=== PATIENT | female | born 1955 | race Caucasian/White ===

== ENCOUNTER 2023-04-10 16:36 | Inpatient (IN) | payer MEDICARE, OTHER ==
[~2023-04-10] VITALS: Ht 165.1 cm; Wt 102.3 kg
[2023-04-10] VITALS (8 sets, daily range): BP systolic 154–183; BP diastolic 55–80; PULSE 64–70; RESP 13–21; TEMP 96–97.7; O2SAT 94–100
[~2023-04-10 16:36] MED LIST: COREG12.5 MG PO; FUROSEMIDE20 MG PO; FUROSEMIDE40 MG PO; HUMULIN-R100 UNITS/ SQ; HYTRIN1 M1 PO; INVOCANA PO; JANUVIA25 MG PO; JANUVIA50 MG PO; LISINOPRIL10 MG PO; LOSARTAN POTASS50 MG PO; SIMVASTATIN20 MG PO; TERAZOSIN HCL5 MG PO; insulin n SQ
[2023-04-10] MEDS ORDERED: DEXTROSE 50% SYRINGE 50 ML IV ONE (16:52)
[2023-04-10] MEDS ORDERED: DEXTROSE 5%/0.45% SOD CHL 1,000 ML IV ONE (17:00)
[2023-04-10 18:00] LABS: BASOPHILS # (AUTO) 0.1 (0.0-0.1); BASOPHILS % 0.5 % (0.0-1.0); EOSINOPHILS % 0.2 % (0.0-6.0); HEMATOCRIT 34.8 % (34.2-44.1); HEMOGLOBIN 11.5 g/dL (12.0-16.0); LYMPHOCYTES % 8.4 % (18.0-39.1); MEAN CORPUSCULAR HEMOGLOBIN 30.9 pg (28-32); MEAN CORPUSCULAR VOLUME 93.5 fL (81-99); MONOCYTES # (AUTO) 0.6 (0.2-0.8); MONOCYTES % 5.1 % (4.4-11.3); NEUTROPHILS # (AUTO) 10.6 (2.1-6.9); NEUTROPHILS % 85.3 % (38.7-80.0); PLATELET COUNT 182 x10e3/uL (140-360); RED BLOOD COUNT 3.72 x10e6/uL (3.6-5.1); RED CELL DISTRIBUTION WIDTH 13.1 % (11.7-14.4)
[2023-04-10 18:06] LABS: CLARITY,URINE SL CLOUDY (CLEAR); COLOR,URINE YELLOW (YELLOW); KETONES,URINE NEGATIVE (NEGATIVE); LEUKOCYTE ESTERASE ,URINE SMALL (NEGATIVE); NITRITE,URINE NEGATIVE (NEGATIVE); PROTEIN,URINE DIPSTICK >=300 (NEGATIVE); URINE UROBILINOGEN 0.2 mg/dL (0.2 - 1)
[2023-04-10 18:13] LABS: BACTERIA,URINE MANY /HPF; EPITHELIAL CELLS,URINE FEW /LPF; WBC,URINE (MAN) 21-50 /HPF (0-5)
[2023-04-10 18:14] LABS: INR 0.98; PROTHROMBIN TIME 13.5 seconds (11.9-14.5)
[2023-04-10 18:15] LABS: PARTIAL THROMBOPLASTIN TIME 36.7 seconds (23.8-35.5)
[2023-04-10 18:20] LABS: ALANINE AMINOTRANSFERASE 22 IU/L (0-55); ALBUMIN 3.1 g/dL (3.5-5.0); ALBUMIN/GLOBULIN RATIO 0.6 (0.8-2.0); ALKALINE PHOSPHATASE 92 IU/L (40-150); ANION GAP 21.1 mmol/L (8-16); BLOOD UREA NITROGEN 60 mg/dL (7-26); BUN/CREATININE RATIO 6 (6-25); CALCIUM 9.4 mg/dL (8.4-10.2); CARBON DIOXIDE 25 mmol/L (22-29); CHLORIDE 98 mmol/L (98-107); CREATINE KINASE 257 IU/L (29-168); CREATININE, SERUM 10.15 mg/dL (0.57-1.11); MAGNESIUM 2.5 MG/DL (1.3-2.1); POTASSIUM 4.1 mmol/L (3.5-5.1); SODIUM 140 mmol/L (136-145)
[2023-04-10 18:26] LABS: GLUCOSE 45 mg/dL (74-118)
[2023-04-10] MEDS ORDERED: IOPAMIDOL 370 MG/ML 100 ML INFUS..BTL INJ ONE (18:34)
[2023-04-10] MEDS ORDERED: SODIUM CHLORIDE 0.9% 0 ML ONE (18:34)
[2023-04-10] MEDS ORDERED: DEXTROSE 50% SYRINGE 50 ML IV STA (18:41)
[2023-04-10] MEDS ORDERED: SODIUM CHLORIDE FLUSH 10 ML SYR INJ PRN (19:00)
[2023-04-10] MEDS ORDERED: DEXTROSE 50% SYRINGE 50 ML IV PRN ×2 (19:00→23:45)
[2023-04-10] MEDS ORDERED: ONDANSETRON HCL INJ 2MG/ML 2ML 2 MG/ML VIAL IV PRN (19:00)
[2023-04-10] MEDS ORDERED: LOSARTAN POTAS100 MG PO (22:32)
[2023-04-10] MEDS ORDERED: HUMULIN N100 UNITS/ SC (22:32)
[2023-04-10] MEDS ORDERED: AMLODIPINE BESY10 MG PO (22:32)
[2023-04-11] VITALS (17 sets, daily range): BP systolic 148–186; BP diastolic 62–82; PULSE 60–67; RESP 14–26; TEMP 97.7–98.7; O2SAT 88–97
[2023-04-11] MEDS: LOSARTAN POTASSIUM 100 MG TAB PO SCH ×2 (01:32→07:51)
[2023-04-11] MEDS: CARVEDILOL 12.5 MG TAB PO SCH ×3 (01:33→17:22)
[2023-04-11] MEDS: INSULIN REGULAR, HUMAN 100 UNIT/1 ML SQ SCH ×4 (07:30→20:10)
[2023-04-11 08:48] LABS: BASOPHILS # (AUTO) 0.1 (0.0-0.1); BASOPHILS % 0.5 % (0.0-1.0); EOSINOPHILS # (AUTO) 0.2 (0.0-0.4); EOSINOPHILS % 1.4 % (0.0-6.0); HEMATOCRIT 29.2 % (34.2-44.1); HEMOGLOBIN 9.5 g/dL (12.0-16.0); LYMPHOCYTES # (AUTO) 1.3 (1.0-3.2); LYMPHOCYTES % 11.1 % (18.0-39.1); MEAN CORPUSCULAR HEMOGLOBIN 30.6 pg (28-32); MEAN CORPUSCULAR HGB CONC 32.5 g/dL (31-35); MEAN CORPUSCULAR VOLUME 94.2 fL (81-99); MONOCYTES # (AUTO) 0.7 (0.2-0.8); MONOCYTES % 6.3 % (4.4-11.3); NEUTROPHILS # (AUTO) 9.1 (2.1-6.9); NEUTROPHILS % 80.4 % (38.7-80.0); PLATELET COUNT 187 x10e3/uL (140-360); RED CELL DISTRIBUTION WIDTH 13.7 % (11.7-14.4)
[2023-04-11] MEDS ORDERED: AMLODIPINE BESYLATE 10 MG TAB PO SCH (09:00)
[2023-04-11 09:05] LABS: ANION GAP 20.3 mmol/L (8-16); CALCIUM 8.3 mg/dL (8.4-10.2); CREATININE, SERUM 10.31 mg/dL (0.57-1.11); POTASSIUM 4.3 mmol/L (3.5-5.1)
[2023-04-11] MEDS ORDERED: POLYETHYLENE GLYCOL 3350 17 GM PACK PO PRN (14:45)
[2023-04-11] MEDS ORDERED: HYDRALAZINE HCL 20 MG/ML VIAL IV PRN (14:45)
[2023-04-11] MEDS ORDERED: ACETAMINOPHEN 325 MG TAB PO PRN (14:45)
[2023-04-11] MEDS: AMLODIPINE BESYLATE 10 MG TAB PO SCH (17:21)
[2023-04-11] MEDS: MUPIROCIN 2% OINT 22 GM TUBE TOP SCH (17:22)
[2023-04-11] MEDS: DOCUSATE SODIUM 100 MG CAP PO SCH (17:22)
[2023-04-11] MEDS ORDERED: SIMVASTATIN 20 MG TAB PO SCH (21:00)
[2023-04-12] VITALS (12 sets, daily range): BP systolic 126–172; BP diastolic 59–102; PULSE 58–73; RESP 16–24; TEMP 97.7–98; O2SAT 87–97
[2023-04-12 07:47] LABS: BASOPHILS # (AUTO) 0.1 (0.0-0.1); BASOPHILS % 0.5 % (0.0-1.0); EOSINOPHILS # (AUTO) 0.2 (0.0-0.4); HEMOGLOBIN 9.9 g/dL (12.0-16.0); LYMPHOCYTES # (AUTO) 1.6 (1.0-3.2); LYMPHOCYTES % 15.3 % (18.0-39.1); MEAN CORPUSCULAR HEMOGLOBIN 30.3 pg (28-32); MEAN CORPUSCULAR HGB CONC 31.9 g/dL (31-35); MEAN CORPUSCULAR VOLUME 94.8 fL (81-99); MONOCYTES # (AUTO) 0.7 (0.2-0.8); MONOCYTES % 7.2 % (4.4-11.3); NEUTROPHILS # (AUTO) 7.6 (2.1-6.9); NEUTROPHILS % 74.6 % (38.7-80.0); PLATELET COUNT 198 x10e3/uL (140-360); RED BLOOD COUNT 3.27 x10e6/uL (3.6-5.1); RED CELL DISTRIBUTION WIDTH 13.5 % (11.7-14.4)
[2023-04-12 08:10] LABS: ALBUMIN 2.8 g/dL (3.5-5.0); ALBUMIN/GLOBULIN RATIO 0.7 (0.8-2.0); ANION GAP 19.8 mmol/L (8-16); CALCIUM 8.6 mg/dL (8.4-10.2); CREATININE, SERUM 10.03 mg/dL (0.57-1.11); POTASSIUM 3.8 mmol/L (3.5-5.1)
[2023-04-12 08:30] LABS: THYROID STIMULATING HORMONE 1.992 uIU/mL (0.350-4.940)
[2023-04-12] MEDS: LOSARTAN POTASSIUM 100 MG TAB PO SCH (09:50)
[2023-04-12] MEDS: DOCUSATE SODIUM 100 MG CAP PO SCH ×2 (09:50→17:07)
[2023-04-12] MEDS: AMLODIPINE BESYLATE 10 MG TAB PO SCH (09:52)
[2023-04-12] MEDS: INSULIN REGULAR, HUMAN 100 UNIT/1 ML SQ SCH ×3 (10:01→17:13)
[2023-04-12] MEDS: MUPIROCIN 2% OINT 22 GM TUBE TOP SCH (10:15)
[2023-04-12] MEDS: CARVEDILOL 12.5 MG TAB PO SCH ×2 (12:16→17:08)
[2023-04-12] MEDS ORDERED: ONDANSETRON HCL 4 MG ORAL DISINTEGRATING TAB PO PRN (18:45)
== END 2023-04-12 19:08 | disposition home or self-care (01) | DRG 689 ==
LOC: ER 16:42 → ERHOLD 18:50 → ICU 19:54 → MED/SURG3 04-12 15:40
PROVIDERS: ADMIT Internal Medicine; ATTEND Internal Medicine
DX: N39.0 Urinary tract infection, site not specified (principal); N18.6 End stage renal disease; I12.0 Hypertensive chronic kidney disease with stage 5 chronic kidney disease or end stage renal disease; N25.81 Secondary hyperparathyroidism of renal origin; E11.649 Type 2 diabetes mellitus with hypoglycemia without coma; Z79.4 Long term (current) use of insulin; Z79.84 Long term (current) use of oral hypoglycemic drugs; T68.XXXA Hypothermia, initial encounter; R55 Syncope and collapse; E11.22 Type 2 diabetes mellitus with diabetic chronic kidney disease; Z99.2 Dependence on renal dialysis; D63.1 Anemia in chronic kidney disease; E83.39 Other disorders of phosphorus metabolism; S92.912A Unspecified fracture of left toe(s), initial encounter for closed fracture; E11.42 Type 2 diabetes mellitus with diabetic polyneuropathy
CPT/HCPCS: 0223U; 36415; 51700; 70450; 70544; 70547; 70551; 71045; 72125; 80048; 80053; 80061; 81001; 82550; 82553; 82948; 83036; 83605; 83735; 83880; 84100; 84443; 84484; 85025; 85610; 85730; 87040; 87070; 87086; 87205; 93005; 94799; 96372; 99252; 99284; J0696; J7050; J7799; Q9967